=== PATIENT | male | born 1965 | race Caucasian/White ===

== ENCOUNTER 2021-10-23 14:57 | Inpatient (IN) | payer SELFPAY ==
[~2021-10-23] VITALS: Ht 180.3 cm; Wt 106.6 kg
[2021-10-23 15:09] LABS: RED BLOOD COUNT 5.06 M/UL (4.20-5.50)
[2021-10-23 15:30] LABS: BUN/CREATININE RATIO 19 (0-10)
[2021-10-23] MEDS ORDERED: HYDROCHLOROTH12.5 M1 PO (18:09)
[2021-10-23] MEDS ORDERED: LISINOPRIL40 MG PO (18:10)
[2021-10-23] MEDS ORDERED: IBU800 MG PO (18:10)
[2021-10-23] MEDS ORDERED: MIRTAZAPINE45 MG PO (18:11)
[2021-10-23] MEDS ORDERED: AMLODIPINE BESY10 MG PO (18:11)
[2021-10-23] MEDS ORDERED: BENADRYL25 MG PO (18:12)
[2021-10-23] MEDS ORDERED: PRILOSEC OTC20 MG PO (18:12)
[2021-10-24 05:13] LABS: HEMOGLOBIN 14.6 gm/dl (14.0-17.5); RED BLOOD COUNT 4.88 M/UL (4.20-5.50); WHITE BLOOD COUNT 15.4 K/UL (4.5-11.0)
[2021-10-24 05:54] LABS: BUN/CREATININE RATIO 15 (0-10)
[2021-10-25] MEDS ORDERED: LOPRESSOR 25 MG25 MG PO (10:02)
[2021-10-25] MEDS ORDERED: CLOPIDOGREL75 MG PO (10:02)
[2021-10-25] MEDS ORDERED: ATORVASTATIN CA20 MG PO (10:02)
[2021-10-25] MEDS ORDERED: PROTONIX 40 MG40 M1 PO (10:02)
[2021-10-25] MEDS ORDERED: ASPIRIN EC81 MG PO (10:02)
[2021-10-25] MEDS ORDERED: FLU VACCINE IM (10:02)
== END 2021-10-25 11:20 | disposition home or self-care (01) | DRG 247 ==
LOC: ER1 14:57 → CCU 15:08 → PROG CARE 10-24 10:53
PROVIDERS: Family Medicine; ADMIT Internal Medicine Cardiovascular Disease
PROC: 027034Z Dilation of Coronary Artery, One Artery with Drug-eluting Intraluminal Device, Percutaneous Approach (ICD-10-PCS; principal; 2021-10-23)
PROC: B2111ZZ Fluoroscopy of Multiple Coronary Arteries using Low Osmolar Contrast (ICD-10-PCS; 2021-10-23)
PROC: 4A023N7 Measurement of Cardiac Sampling and Pressure, Left Heart, Percutaneous Approach (ICD-10-PCS; 2021-10-23)
DX: I21.19 ST elevation (STEMI) myocardial infarction involving other coronary artery of inferior wall (principal); I97.88 Other intraoperative complications of the circulatory system, not elsewhere classified; I47.1 Supraventricular tachycardia; I10 Essential (primary) hypertension; E78.5 Hyperlipidemia, unspecified; E66.9 Obesity, unspecified; F17.210 Nicotine dependence, cigarettes, uncomplicated; Y83.8 Other surgical procedures as the cause of abnormal reaction of the patient, or of later complication, without mention of misadventure at the time of the procedure; Z79.82 Long term (current) use of aspirin; Z90.49 Acquired absence of other specified parts of digestive tract; Z87.442 Personal history of urinary calculi; Z82.49 Family history of ischemic heart disease and other diseases of the circulatory system; Z88.5 Allergy status to narcotic agent; Z88.2 Allergy status to sulfonamides; Z68.32 Body mass index [BMI] 32.0-32.9, adult
CPT/HCPCS: ECHO; 80048; 80053; 80061; 82550; 82553; 83036; 83735; 84484; 85025; 85027; 85347; 85610; 85730; 93005; 93306; 96374; 96375; 99152; 99153; 99285; C1725; C1769; C1874; C1887; C1894; J0461; J1644; J2250; J2270; J2370; J2405; J3010; J7040; Q9965; Q9967